=== PATIENT | female | born 1975 | race Hispanic/Latino ===

== ENCOUNTER 2017-10-11 19:49 | Emergency (ER) | payer OTHER ==
[2017-10-11 20:33] VITALS: BP 137/75; PULSE 107; RESP 16; TEMP 98.8; O2SAT 98
--- NOTE | 2017-10-11 21:53 | ED PDOC ---
HPI: Fever Additional Comments: Pt reports L breast pain and fever (Tm 103) X 2 days, took Motrin with relief of fever. Pt curently + pumping. Also states she has a cold and recently stayed where there are cats, + allergy to cats. Past Medical History Reviewed: Nursing Documentation, Vital Signs Vital Signs: Last Vital Signs Temp 98.8 F 10/11/17 20:30 Pulse 107 H 10/11/17 20:30 Resp 16 10/11/17 20:30 BP 137/75 10/11/17 20:30 Pulse Ox 98 10/11/17 20:30 - Medical History PMH: No Chronic Diseases - Family History Family History: States: Unknown Family Hx - Social History Alcohol: None - Home Medications Home Medications: Ambulatory Orders Medication Instructions Recorded Cephalexin [cephalexin] 500 mg PO QID #40 cap 10/11/17 Ibuprofen [Motrin] 600 mg PO Q6H PRN #20 tab 10/11/17 - Allergies Allergies/Adverse Reactions: Allergies Allergy/AdvReac Type Severity Reaction Status Date / Time No Known Allergies Allergy Verified 10/11/17 20:30 Review of Systems Constitutional: Positive for: Fever, Chills, Sweats Cardiovascular: Positive for: Other (L breast pain). Negative for: Chest Pain, Palpitations Respiratory: Negative for: Cough, Shortness of Breath Gastrointestinal: Negative for: Nausea, Vomiting, Abdominal Pain, Diarrhea Genitourinary Female: Negative for: Dysuria, Hematuria Skin: Negative for: Rash, Lesions Neurological: Negative for: Headache Physical Exam - Reviewed Nursing Documentation Reviewed: Yes Vital Signs Reviewed: Yes - Physical Exam Appears: Positive for: Well, No Acute Distress Skin: Positive for: Normal Color, Warm, Dry Eye Exam: Positive for: Normal appearance, EOMI, PERRL Cardiovascular/Chest: Positive for: Regular Rate, Rhythm, Other (L BREAST: No erythema, TTP L lateral breast, no cord palpated, no nipple discharge, no lesions) Respiratory: Positive for: Normal Breath Sounds. Negative for: Rales, Rhonchi, Wheezing - ECG O2 Sat by Pulse Oximetry: 98 Medical Decision Making Medical Decision Makin yo female with L breast pain and fever. - Keflex Disposition - Clinical Impression Clinical Impression: Mastitis - Disposition Disposition: Routine/Home Disposition Time: 21:55 Condition: STABLE Additional Instructions: FOLLOW-UP WITH PMD WITHIN 2 DAYS FOR REEVALUATION. Prescriptions: Cephalexin [cephalexin] 500 mg PO QID #40 cap Ibuprofen [Motrin] 600 mg PO Q6H PRN #20 tab PRN Reason: Pain, Moderate (4-7) Instructions: Mastitis
== END 2017-10-11 22:28 | disposition home or self-care (01) ==
LOC: H.ER 19:49
DX: N61.0 Mastitis without abscess (principal); R50.9 Fever, unspecified